=== PATIENT | female | born 1990 | race Caucasian/White ===

== ENCOUNTER 2017-05-23 17:44 | Emergency (ER) | payer BC ==
[2017-05-23] MEDS ORDERED: Proparacaine 0.5% Ophth Soln 15 ML Bottle EYERT ONE (18:12)
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
[2017-05-23] MEDS ORDERED: Fluorescein 0.6 MG Ophth Strip EYERT ONE (18:15)
[2017-05-23] MEDS ORDERED: Erythromycin Base 0.5% Ophth Oint 1 GM Tube EYERT ONE (18:35)
== END 2017-05-23 19:14 | disposition home or self-care (01) ==
LOC: JD.ED 17:44
DX: S05.01XA Injury of conjunctiva and corneal abrasion without foreign body, right eye, initial encounter (principal); X58.XXXA Exposure to other specified factors, initial encounter
CPT/HCPCS: 99283; A9270

== ENCOUNTER 2020-04-04 20:46 | Emergency (ER) | payer OTHER ==
[2020-04-04] MEDS ORDERED: Metoclopramide 10 MG/2 ML SDV IM ONE (21:05)
[2020-04-04] MEDS ORDERED: Ketorolac 30 MG/ML SDV IM ONE (21:05)
[2020-04-04] MEDS ORDERED: diphenhydrAMINE 50 MG/ML SDV IM ONE (21:05)
--- NOTE | 2020-04-04 21:29 | EDM.PDOC ---
ED HPI GENERAL MEDICAL PROBLEM - General Chief Complaint: Headache Stated Complaint: HEADACHE/NUMBNESS Time Seen by Provider: 04/04/20 20:54 Source of Information: Reports: Patient, RN Notes Reviewed History Limitations: Reports: No Limitations - History of Present Illness INITIAL COMMENTS - FREE TEXT/NARRATIVE: Patient is a 29 year old female who presents to the ED for her headache. Patient notes that the headache started at around 7 PM tonight, she has not taken any medications for this. She does note she has history of similar headaches, and is complaining of some numbness to the right side of her face, and into her bilateral arms. She was noted to have some shakiness at home. She is complaining of what she calls possible tunnel vision, or halos around her vision. She noted mildly blurry vision as well. She is nauseated but has not vomited. She does have an appointment with neurology in April for further evaluation and management. Patient notes she is light sensitive but not sound sensitive. She did try some CBD at home but no other [id number] medications. She was supposed to start on a migraine prophylaxis medication, prescribed by Dr. Kennedy however she did not due to the side effects and has not discussed this with Dr. Kennedy at this time. Patient denies any other sick-like symptoms, fever/chills, cough/shortness of breath, vomiting/diarrhea. Headache Pain Score (Numeric/FACES): 10 - Related Data Allergies Allergy/AdvReac Type Severity Reaction Status Date / Time No Known Allergies Allergy Verified 04/04/20 20:57 Home Meds: Home Meds . [No Known Home Meds] 05/23/17 [History] Past Medical History HEENT History: Reports: Impaired Vision Neurological History: Reports: Migraines Endocrine/Metabolic History: Reports: Obesity/BMI 30+ - Past Surgical History Musculoskeletal Surgical History: Reports: Other (See Below) Other Musculoskeletal Surgeries/Procedures:: Right Arm Surgery Social & Family History - Tobacco Use Tobacco Use Status *Q: Never Tobacco User - Caffeine Use Caffeine Use: Reports: None - Recreational Drug Use Recreational Drug Use: No ED ROS GENERAL - Review of Systems Review Of Systems: Comprehensive ROS is negative, except as noted in HPI. - Physical Exam Exam: See Below Exam Limited By: No Limitations General Appearance: Alert, WD/WN Eye Exam: Bilateral Eye: EOMI, Normal Inspection, PERRL Respiratory/Chest: No Respiratory Distress, Lungs Clear, Normal Breath Sounds, No Accessory Muscle Use, Chest Non-Tender Cardiovascular: Normal Peripheral Pulses, Regular Rate, Rhythm, No Edema GI/Abdominal: Normal Bowel Sounds, Soft, Non-Tender, No Distention, No Mass Neuro Exam (Abbreviated): Alert, Oriented, Normal Cognition, No Motor/Sensory Deficits Extremities: Normal Inspection, Normal Capillary Refill Psychiatric: Normal Affect, Normal Mood Skin Exam: Warm, Dry, Intact, Normal Color, No Rash Course - Vital Signs Last Recorded V/S: Last Vital Signs Temp 96.9 F 04/04/20 20:54 Pulse 68 04/04/20 20:54 Resp 16 04/04/20 20:54 BP 122/72 04/04/20 20:54 Pulse Ox 98 04/04/20 20:54 - Orders/Labs/Meds Meds: Medications Discontinued Medications Generic Name Dose Route Start Last Admin Trade Name Burton PRN Reason Stop Dose Admin Diphenhydramine HCl 25 mg 04/04/20 21:05 04/04/20 21:23 Benadryl IM 04/04/20 21:06 25 mg ONETIME ONE Administration Ketorolac Tromethamine 30 mg 04/04/20 21:05 04/04/20 21:21 Toradol IM 04/04/20 21:06 30 mg ONETIME ONE Administration Metoclopramide HCl 10 mg 04/04/20 21:05 04/04/20 21:23 Reglan IM 04/04/20 21:06 10 mg ONETIME ONE Administration - Re-Assessments/Exams Free Text/Narrative Re-Assessment/Exam: 04/04/20 21:28 Patient presents to the ED for her headache. For tonight's purposes as she has not been vomiting and is only nauseous, she would like injections rather than IV started. This is fine with me have ordered Toradol, Benadryl, Reglan for headache management. 04/04/20 21:56 Patient is feeling better and would like to go home. This is fine with me, sta jamin her headache is a 7/10. Departure - Departure Time of Disposition: 21:58 Disposition: Home, Self-Care 01 Condition: Good Clinical Impression: Migraine - Discharge Information *PRESCRIPTION DRUG MONITORING PROGRAM REVIEWED*: No *COPY OF PRESCRIPTION DRUG MONITORING REPORT IN PATIENT ANNE MARIE: No Instructions: Recurrent Migraine Headache, [id number] Referrals: Rita Kennedy MD [Primary Care Provider] - Forms: ED Department Discharge Additional Instructions: You were evaluated in the ED for your headache. You were given a combination of medications and IV fluid for management. This did seem to provide you pretty good relief of your symptoms. Recommend that you go home and rest in a quiet, darkened room. Try also to keep well hydrated. Please return to the ED if your symptoms should change or worsen. Sepsis Event Note (ED) - Evaluation Sepsis Screening Result: No Definite Risk - Focused Exam Vital Signs: Vital Signs Temp Pulse Resp BP Pulse Ox 04/04/20 20:54 96.9 F 68 16 122/72 98
== END 2020-04-04 22:00 | disposition home or self-care (01) ==
LOC: JD.ED 20:46
DX: G43.909 Migraine, unspecified, not intractable, without status migrainosus (principal); E66.9 Obesity, unspecified; Z68.42 Body mass index [BMI] 45.0-49.9, adult
CPT/HCPCS: 96372; 99283; J1200; J1885; J2765

== ENCOUNTER 2021-04-30 05:10 | Emergency (ER) | payer OTHER ==
[2021-04-30] MEDS ORDERED: Ketorolac 15 MG/ML SDV IM ONE (05:46)
[2021-04-30] MEDS ORDERED: Cyclobenzaprine 10 MG Tab PO ONE (05:46)
== END 2021-04-30 06:30 | disposition home or self-care (01) ==
LOC: JD.ED 05:10
DX: S39.012A Strain of muscle, fascia and tendon of lower back, initial encounter (principal); M54.42 Lumbago with sciatica, left side; E66.9 Obesity, unspecified; Z68.42 Body mass index [BMI] 45.0-49.9, adult; X50.0XXA Overexertion from strenuous movement or load, initial encounter
CPT/HCPCS: 96372; 99283; A9270; J1885; 99284